=== PATIENT | female | born 1930 | race Hispanic/Latino ===

== ENCOUNTER 2018-06-13 13:01 | Inpatient (IN) | payer MEDICARE, OTHER ==
[2018-06-13 13:06] VITALS: BMI 26.9
--- NOTE | 2018-06-13 13:52 | ED PDOC ---
Arrival/HPI - History of Present Illness Narrative History of Present Illness (Text): 06/13/18 13:51 Pt is an 87 yo F with pmhx of HLD, hypothyroidism, DM, osteoporosis, and peripheral neuropathy who comes in with leg pain and swelling s/p fall 2/2 syncope 1 week ago. She states that about 1 week ago she was attempting to get on a bus, when she suddenly felt light headed and then "everything went black". The next thing she remembers is that she was on the ground and her walker was laying on its side. She states that she remembers all events leading up to the fall, and everything after but states that her memory of the actual fall is fuzzy. She denies ever having a syncopal episode before, and states that her o nly medication change recently was the addition of nitroglycerin as needed. She states that after the fall she felt a shooting pain down her R leg, which is currently rated as an 8/10 in intensity. She also states that since the fall she is unable to place weight on the R leg or use or walker. She admits to having broken her R and L hip in falls previous and has also broken her pelvis in previous falls. She now admits that both of her feet got swollen suddenly yesterday, but it is now improving. She denies any calf tenderness. She also denies confusion, weakness, chest pain, SOB, nausea, vomiting, abdominal pain, dysuria or hematuria. She denies any saddle anesthesia or fecal incontinence. PMHx: HLD, Hypothyroidism, DM, osteoporosis, peripheral neuropathy Pshx: R, L and pelvic surgeries All: Penicillin - Hives Social Hx: Quit smoking > 40 yrs ago, no etoh or illicit drug use Fam Hx: Denies 06/13/18 14:15 Time/Duration: 1 week Symptom Onset: Sudden Quality: Burning Severity Level: 8 Context: Standing <Feli Zafar - Last Filed: 06/13/18 18:46> <Abraham Domínguez - Last Filed: 06/14/18 15:46> - General Chief Complaint: Syncope Time Seen by Provider: 06/13/18 13:11 Past Medical History - Infectious Disease Hx of Infectious Diseases: None - Tetanus Immunization Tetanus Immunization: Unknown - Reproductive Menopause: Yes - Cardiac Hx Cardiac Disorders: Yes (CAD) - Pulmonary Hx Respiratory Disorders: No Hx Asthma: No - Neurological Hx Neurological Disorder: No - HEENT Hx HEENT Disorder: No - Renal Hx Renal Disorder: No - Endocrine/Metabolic Hx Endocrine Disorders: Yes Hx Diabetes Mellitus Type 2: Yes Hx Hypothyroidism: Yes - Hematological/Oncological Hx Blood Disorders: No Hx Blood Transfusions: No Hx Blood Transfusion Reaction: No - Integumentary Hx Dermatological Disorder: No - Musculoskeletal/Rheumatological Hx Musculoskeletal Disorders: Yes Hx Falls: Yes - Gastrointestinal Hx Gastrointestinal Disorders: Yes Hx Gastroesophageal Reflux: Yes - Genitourinary/Gynecological Hx Genitourinary Disorders: No - Psychiatric Hx Psychophysiologic Disorder: No Hx Substance Use: No - Surgical History Hx Orthopedic Surgery: Yes (R hip surgery) - Anesthesia Hx Anesthesia Reactions: No Hx Malignant Hyperthermia: No <Feli Zafar - Last Filed: 06/13/18 18:46> Family/Social History Family/Social History: Unknown Family HX Smoking Status: Former Smoker Hx Alcohol Use: No Hx Substance Use: No <Feli Zafar - Last Filed: 06/13/18 18:46> Allergies/Home Meds <Feli Zafar - Last Filed: 06/13/18 18:46> <Abraham Domínguez - Last Filed: 06/14/18 15:46> Allergies/Adverse Reactions: Allergies latex Allergy (Verified 06/13/18 13:06) RASH Penicillins Allergy (Verified 09/22/16 10:55) RASH Home Medications: Home Meds Medication Instructions Recorded Confirmed Gabapentin [Neurontin] 300 mg PO TID 04/01/16 06/13/18 Levothyroxine Sodium [Synthroid] 0.075 mg PO DAILY 04/01/16 06/13/18 Omeprazole [Prilosec] 40 mg PO DAILY 04/01/16 06/13/18 Tramadol HCl/Acetaminophen 1 tab PO BID PRN 04/01/16 06/13/18 [Tramadol-Acetaminophn 37.5-325] Atorvastatin [Lipitor] 40 mg PO DAILY 06/13/18 06/13/18 Clopidogrel [Plavix] 75 mg PO DAILY 06/13/18 06/13/18 Lidocaine 5% [Lidoderm] 1 patch TD DAILY 06/13/18 06/13/18 Nitroglycerin [Nitrostat] 0.4 mg SL DAILY 06/13/18 06/13/18 Review of Systems - Physician Review All systems were reviewed & negative as marked: Yes - Review of Systems Respiratory: absent: SOB Cardiovascular: absent: Chest Pain Gastrointestinal: absent: Abdominal Pain, Nausea, Vomiting Musculoskeletal: Other (R hip pain). absent: Back Pain Neurological: Other (denies any saddle anesthesia or fecal incontinence). absent: Focal Weakness, Speech Changes <Feli Zafar - Last Filed: 06/13/18 18:46> Physical Exam Vital Signs Reviewed: Yes Vital Signs Temp Pulse Resp BP Pulse Ox 06/13/18 13:29 97.6 F 71 18 97/54 L 97 Temperature: Afebrile Blood Pressure: Normal Pulse: Regular Respiratory Rate: Normal Appearance: Positive for: Non-Toxic, Uncomfortable Pain Distress: Mild Mental Status: Positive for: Alert and Oriented X 3 - Systems Exam Head: Present: Atraumatic, Normocephalic Pupils: Present: PERRL Extroacular Muscles: Present: EOMI Respiratory/Chest: Present: Clear to Auscultation, Good Air Exchange. No: Respiratory Distress, Accessory Muscle Use, Wheezes Cardiovascular: Present: Regular Rate and Rhythm, Normal S1, S2. No: Murmurs, Rub, Gallop Abdomen: Present: Normal Bowel Sounds. No: Tenderness, Distention, Peritoneal Signs Lower Extremity: Present: Edema, NORMAL PULSES. No: CALF TENDERNESS, Paris's Sign, Tenderness Neurological: Present: GCS=15, Speech Normal. No: Motor Func Grossly Intact (Pt is able to move both R and L feet at ankles in all directions with no limit in ROM, but she is unable to lift her R leg. ROM in R leg is also diminished due to pain.), Normal Sensory Function (She has b/l peripheral neuropathy in both legs past the ankles. ) Skin: Present: Dry, Normal Color. No: Rashes Psychiatric: Present: Alert, Oriented x 3, Normal Insight, Normal Concentration <Feli Zafar - Last Filed: 06/13/18 18:46> Vital Signs Temp Pulse Resp BP Pulse Ox 06/13/18 15:04 97.6 F 61 22 84/42 L 96 06/13/18 13:29 97.6 F 71 18 97/54 L 97 <Abraham Domínguez - Last Filed: 06/14/18 15:46> Medical Decision Making ED Course and Treatment: 06/13/18 14:34 Pt is a 87 yo F with pmhx detailed above who presented for R leg pain and b/l foot swelling s/p fall 2/2 syncope - EKG - Trops - CT pelvis and hips - Doppler US LE b/l - CBC - CMP 06/13/18 18:47 Progress Note: Pt was seen at bedside. Reassessed her pain, which she states is much better, but upon attempting to have pt ambulate, she was very weak and unable to walk. - Discussed case with Dr. Edward who accepts the pt and requests Dr. Wilson. Requests to be updated on pts CT results. 06/13/18 18:50 <Feli Zafar - Last Filed: 06/13/18 18:46> ED Course and Treatment: Progress Notes 06/13/18 18:39 Patient reevaluated and deemed unable to ambulate without assistance. Call placed to Dr. Yeh(covering for Dr. Peck). - Lab Interpretations Lab Results: 06/13/18 15:11 06/13/18 15:11 Lab Results 06/13/18 15:11: Sodium 137, Potassium 5.1 H, Chloride 102, Carbon Dioxide 27, Anion Gap 13, BUN 40 H, Creatinine 1.4 H, Est GFR ( Amer) 43, Est GFR (Non-Af Amer) 36, Random Glucose 98, Calcium 9.8, Phosphorus 4.0, Magnesium 1.9, Total Bilirubin 0.6, AST 45 H, ALT 22, Alkaline Phosphatase 81, Troponin I Pending, Total Protein 7.3, Albumin 3.9, Globulin 3.3, Albumin/Globulin Ratio 1.2 06/13/18 15:11: WBC 7.0, RBC 3.47 L, Hgb 10.9 L, Hct 32.8 L, MCV 94.5, MCH 31.4, MCHC 33.2, RDW 13.3, Plt Count 250, MPV 10.0, Gran % 71.0 H, Lymph % (Auto) 20.1 L, [place] % (Auto) 5.0, Eos % (Auto) 3.3, Baso % (Auto) 0.6, Gran # 4.98, Lymph # (Auto) 1.4, [place] # (Auto) 0.4, Eos # (Auto) 0.2, Baso # (Auto) 0.04 - RAD Interpretation Radiology Orders: 06/13/18 14:07 CT HIP W/O CONTRAST BILATERAL [CT] Stat PELVIS W/O PO OR IV CONTRAST [CT] Stat DUPLEX LOWER EXTRM VEIN BILAT [US] Stat - Medication Orders Current Medication Orders: Lidocaine (Lidoderm) 1 ea TD DAILY SILVANO Last Admin: 06/13/18 14:49 Dose: 1 ea MAR Transdermal Patch Site Document 06/13/18 14:49 DOUGHNUT MACHINE OPERATOR (Rec: 06/13/18 14:51 DOUGHNUT MACHINE OPERATOR [facility] [place]-[id number]) Transdermal Patch Site Transdermal Patch Site Right Lower Back Discontinued Medications Acetaminophen (Tylenol 325mg Tab) 975 mg PO STAT STA Stop: 06/13/18 14:12 Last Admin: 06/13/18 14:52 Dose: 975 mg MAR Pain/Vitals Document 06/13/18 14:52 DOUGHNUT MACHINE OPERATOR (Rec: 06/13/18 14:52 DOUGHNUT MACHINE OPERATOR [facility] [place]-[id number]) Pain Reassessment Is This A Pain ReAssessment? Yes Sleep Is patient sleeping during reassessment? No Presence of Pain Presence of Pain Yes Pain Scale Used Protocol: [facility] Scale Used Numeric Location Upper or Lower Lower Pain Location Body Site Back Intensity 8 Scale Used Numeric Ketorolac Tromethamine (Toradol) 30 mg IVP STAT STA Stop: 06/13/18 14:12 Last Admin: 06/13/18 14:52 Dose: 30 mg MAR Pain Assessment Document 06/13/18 14:52 DOUGHNUT MACHINE OPERATOR (Rec: 06/13/18 14:53 DOUGHNUT MACHINE OPERATOR [facility] [place]-[id number]) Pain Reassessment Is this a pain reassessment? Yes Sleep Is patient sleeping during reassessment? No Presence of Pain Presence of Pain Yes Pain Scale Used Protocol: PSCALES Pain Scale Used Numeric Location Upper or Lower Lower Pain Location Body Site Back IVP Administration Document 06/13/18 14:52 DOUGHNUT MACHINE OPERATOR (Rec: 06/13/18 14:53 DOUGHNUT MACHINE OPERATOR [facility] [place]-[id number]) Charges for Administration # of IVP Administrations 1 <Abraham Domínguez - Last Filed: 06/14/18 15:46> - PA / UNDERWEAR WELTER / Resident Statement /DO has reviewed & agrees with the documentation as recorded. MD/DO has examined the patient and agrees with the treatment plan. - Scribe Statement The provider has reviewed the documentation as recorded by the Scribe Patient Seen With Resident: In agreement with resident note. Patient was seen and evaluated with resident, came up with plan and treatment together. <Abraham Domínguez - Last Filed: 06/14/18 15:46> Disposition/Present on Arrival - Present on Arrival Any Indicators Present on Arrival: No History of DVT/PE: No History of Uncontrolled Diabetes: No Urinary Catheter: No History of Decub. Ulcer: No History Surgical Site Infection Following: None - Disposition Have Diagnosis and Disposition been Completed?: Yes Disposition Time: 18:52 <Feli Zafar - Last Filed: 06/13/18 18:46> <Abraham Domínguez - Last Filed: 06/14/18 15:46> - Disposition Diagnosis: Leg pain, anterior, Back pain, Sciatica, Pedal edema, Fall Disposition: HOSPITALIZED Patient Problems: Current Active Problems Problem Status Onset Fall Acute Leg pain, anterior Acute Back pain Acute Sciatica Acute Pedal edema Acute Condition: FAIR
[2018-06-13] MEDS ORDERED: Lidocaine 5% Patch TD SCH (14:15)
[2018-06-13 15:16] LABS: BASO # 0.04 K/mm3 (0.0-2.0); BASO % 0.6 % (0.0-3.0); EOS # 0.2 (0.0-0.7); EOS % 3.3 % (1.5-5.0); GRAN # 4.98 (1.4-6.5); HEMOGLOBIN 10.9 g/dL (12.0-16.0); LYMPH # 1.4 (1.2-3.4); LYMPH % 20.1 % (22.0-35.0); MEAN CELL VOLUME 94.5 fl (80.0-105.0); MEAN CORPUSCULAR HEMOGLOBIN 31.4 pg (25.0-35.0); MEAN CORPUSCULAR HGB CONC 33.2 g/dl (31.0-37.0); MONO # 0.4 (0.1-0.6); RBC 3.47 10^6/uL (3.5-6.1); RED CELL DISTRIBUTION WIDTH 13.3 % (11.5-14.5)
[2018-06-13 15:35] LABS: ALB/GLOB RATIO 1.2 (1.1-1.8); ALBUMIN 3.9 g/dL (3.0-4.8); CALCIUM 9.8 mg/dL (8.4-10.5)
[2018-06-13 15:44] LABS: TROPONIN I 0.03 ng/mL
[2018-06-13] MEDS ORDERED: Albuterol 0.083% Inhal Sol (2.5 mg/3 mL) UD INH STA (16:05)
[2018-06-13] MEDS ORDERED: Sodium Bicarbonate (8.4%) 50 Meq Syringe IVP ONE (16:05)
[2018-06-13] MEDS ORDERED: Oxycodone/Acetaminophen 5/325 mg Tab PO PRN (23:53)
--- NOTE | 2018-06-14 00:11 | CP.PCM.HP ---
History of Present Illness - History of Present Illness History of Present Illness: Pt. is a 87 year old female admitted with difficulty in walking. She had a syncope 1 week ago when she fell while trying to board a bus. She has history of CAD, h/o B/L hip surgery by Dr. Glass. She has history of prior falls also. CT pelvis ordered. Present on Admission - Present on Admission Any Indicators Present on Admission: No Review of Systems - Constitutional Constitutional: As Per HPI - EENT Eyes: absent: As Per HPI, Blind Spots, Blurred Vision, Change in Vision, Decreased Night Vision, Diplopia, Discharge, Dry Eye, Exophthalmos, Floaters, Ir ritation, Itchy Eyes, Loss of Peripheral Vision, Pain, Photophobia, Requires Corrective Lenses, Sees Flashes, Spots in Vision, Tunnel Vision, Other Visual Disturbances, Loss of Vision, Other - Breasts Breasts: absent: As Per HPI, Change in Shape, Mass, Pain, Nipple Discharge, Nipple Inversion, Skin Changes, Swelling, Other - Cardiovascular Cardiovascular: As Per HPI - Respiratory Respiratory: absent: As Per HPI, Cough, Dyspnea, Hemoptysis, Dyspnea on Exertion, Wheezing, Snoring, Stridor, Pain on Inspiration, Chest Congestion, Excessive Mucous Production, Change in Mucous Color, Pain with Coughing, Other - Gastrointestinal Gastrointestinal: absent: As Per HPI, Abdominal Pain, Belching, Bloating, Change in Bowel Habits, Change in Stool Character, Coffee Ground Emesis, Constipation, Cramping, Diarrhea, Dyspepsia, Dysphagia, Early Satiety, Excessive Flatus, Fecal Incontinence, Heartburn, Hematemesis, Hematochezia, Loose Stools, Melena, Nausea, Odynophagia, Temesmus, Vomiting, Other - Genitourinary Genitourinary: absent: As Per HPI, Change in Urinary Stream, Difficulty Urinating, Dysuria, Flank Pain, Hematuria, Pyuria, Nocturia, Urinary Incontinence, Urinary Frequency, Urinary Hesitance, Urinary Urgency, Voiding Freq/Small Amts, Freq UTI, Hx Renal/Bladder Calculi, Hx /Renal Surgery, Blad yon Distension, Other - Integumentary Integumentary: absent: As Per HPI, Acne, Alopecia, Bleeding Lesions, Change in Hair, Change in Nails, Change in Pigmentation, Changing Lesions, Dry Skin, Erythema, Furuncle, Hirsutism, Lesions, New Lesions, Non-Healing Lesions, Photosensitivity, Pruritus, Rash, Skin Pain, Skin Ulcer, Sores, Striae, Swelling, Unusual Bruising, Wounds, Jaundice, Other - Endocrine Endocrine: absent: As Per HPI, Change in Body Appearance, Change in Libido, Cold Intolorance, Deepening of Voice, Excessive Sweating, Fatigue, Flushing, Heat Intolorance, Increase in Ring/Shoe/Hat Size, Palpitations, Polydipsia, Polyphagia, Polyuria, Other - Hematologic/Lymphatic Hematologic: absent: As Per HPI, Easy Bleeding, Easy Bruising, Lymphadenopathy, Other Past Patient History - Infectious Disease Hx of Infectious Diseases: None - Tetanus Immunizations Tetanus Immunization: Unknown - Past Social History Smoking Status: Never Smoked - CARDIAC Hx Cardiac Disorders: Yes (CAD) - PULMONARY Hx Respiratory Disorders: No - NEUROLOGICAL Hx Neurological Disorder: No - HEENT Hx HEENT Problems: No - RENAL Hx Chronic Kidney Disease: No - ENDOCRINE/METABOLIC Hx Endocrine Disorders: Yes Hx Diabetes Mellitus Type 2: Yes Hx Hypothyroidism: Yes - HEMATOLOGICAL/ONCOLOGICAL Hx Blood Disorders: No - INTEGUMENTARY Hx Dermatological Problems: No - MUSCULOSKELETAL/RHEUMATOLOGICAL Hx Musculoskeletal Disorders: Yes Hx Falls: Yes - GASTROINTESTINAL Hx Gastrointestinal Disorders: Yes Hx Gastroesophageal Reflux: Yes - GENITOURINARY/GYNECOLOGICAL Hx Genitourinary Disorders: No - PSYCHIATRIC Hx Psychophysiologic Disorder: No - SURGICAL HISTORY Hx Surgeries: Yes Hx Orthopedic Surgery: Yes (R hip surgery) - ANESTHESIA Hx Anesthesia Reactions: No Hx Malignant Hyperthermia: No Meds Allergies/Adverse Reactions: Allergies Allergy/AdvReac Type Severity Reaction Status Date / Time latex Allergy RASH Verified 06/13/18 13:06 Penicillins Allergy RASH Verified 09/22/16 10:55 Physical Exam - Head Exam Head Exam: ATRAUMATIC, NORMAL INSPECTION, NORMOCEPHALIC - Eye Exam Eye Exam: Normal appearance - ENT Exam ENT Exam: Mucous Membranes Moist, Normal Exam - Neck Exam Neck exam: Positive for: Normal Inspection - Respiratory Exam Respiratory Exam: Clear to Auscultation Bilateral, NORMAL BREATHING PATTERN - Cardiovascular Exam Cardiovascular Exam: REGULAR RHYTHM, +S1, +S2 - GI/Abdominal Exam GI & Abdominal Exam: Normal Bowel Sounds - Extremities Exam Extremities exam: Positive for: normal inspection - Back Exam Back exam: NORMAL INSPECTION - Neurological Exam Neurological exam: Alert, Normal Gait, Oriented x3 - Skin Skin Exam: Normal Color, Warm Results - Vital Signs Recent Vital Signs: Last Vital Signs Temp 98.2 F 06/13/18 21:05 Pulse 60 06/13/18 21:05 Resp 20 06/13/18 21:05 BP 115/69 06/13/18 21:05 Pulse Ox 98 06/13/18 20:24 - Labs Result Diagrams: 06/13/18 15:11 06/13/18 15:11 Labs: Laboratory Results - last 24 hr 06/13/18 06/13/18 15:11 15:11 WBC 7.0 RBC 3.47 L Hgb 10.9 L Hct 32.8 L MCV 94.5 MCH 31.4 MCHC 33.2 RDW 13.3 Plt Count 250 MPV 10.0 Gran % 71.0 H Lymph % (Auto) 20.1 L [place] % (Auto) 5.0 Eos % (Auto) 3.3 Baso % (Auto) 0.6 Gran # 4.98 Lymph # (Auto) 1.4 [place] # (Auto) 0.4 Eos # (Auto) 0.2 Baso # (Auto) 0.04 Sodium 137 Potassium 5.1 H Chloride 102 Carbon Dioxide 27 Anion Gap 13 BUN 40 H Creatinine 1.4 H Est GFR ( Amer) 43 Est GFR (Non-Af Amer) 36 Random Glucose 98 Calcium 9.8 Phosphorus 4.0 Magnesium 1.9 Total Bilirubin 0.6 AST 45 H ALT 22 Alkaline Phosphatase 81 Troponin I 0.03 Total Protein 7.3 Albumin 3.9 Globulin 3.3 Albumin/Globulin Ratio 1.2 Assessment & Plan - Assessment and Plan (Free Text) Assessment: 1. S/P fall : CT pelvis done. ortho consult Dr. Glass. she had hip surgery by Dr. Glass before. 2. CAD : trops to be sent. EKG unremarkable. Cardiology consult Dr. Rios requested. Echo will be ordered. 3. pain : percocet Q 6 hr prn. 4. Blood counts showed mild anemia. work up with am labs. 5. Lovenox 30 mg SQ for DVT prophylaxis. PT bedside .
[2018-06-14] MEDS: Levothyroxine 75 MCG TAB PO SCH (05:52)
[2018-06-14] MEDS: Pantoprazole 40 mg EC Tab PO SCH (05:52)
--- NOTE | 2018-06-14 08:57 | CARD ---
APPROVED REPORT Date of service: 06/13/2018 EKG Measurement Heart [id number] <Conclusion> Sinus rhythm with 1st degree AV block 1 PVC Left axis deviation PRWP Possible anterior CT, old No change
[2018-06-14] MEDS ORDERED: Sod Polystyrene Sulf 15 gm/60 ml Susp PO ONE (09:52)
[2018-06-14] MEDS: Lidocaine 5% Patch TD SCH (10:11)
[2018-06-14] MEDS: Enoxaparin 30 mg Syringe SC SCH (10:12)
--- NOTE | 2018-06-14 11:36 | CT ---
Date of service: 06/13/2018 PROCEDURE: CT Pelvis without contrast HISTORY: Fall COMPARISON: None available. TECHNIQUE: Contiguous axial images of the pelvis . No intravenous or oral contrast given. Coronal and sagittal reformats generated. Radiation dose: Total exam DLP = 553.68 mGy-cm. This CT exam was performed using one or more of the following dose reduction techniques: Automated exposure control, adjustment of the mA and/or kV according to patient size, and/or use of iterative reconstruction technique. FINDINGS: BLADDER: Unremarkable. No mass. REPRODUCTIVE ORGANS: Unremarkable. VISUALIZED BOWEL: Unremarkable. PERITONEUM: Unremarkable, as visualized. No free fluid. No free air. LYMPH NODES: Unremarkable. No enlarged lymph nodes. BONES: Bilateral SEAN. Severe degenerative changes identified. Evidence of old pelvic ring fractures. Possible right ischial, pelvic ring fracture VASCULATURE: Unremarkable. OTHER FINDINGS: None. IMPRESSION: Acute nondisplaced right pelvic ring fracture. Fracture lines are best seen on coronal series 604, image 70 and 84 and axial images series 3, image 90-94 Evidence of old healed pelvic ring fractures on the right. Communication of results: I conveyed these findings to the nurse involved in the care and management this patient at 11:34.
--- NOTE | 2018-06-14 15:59 | CON ---
DATE: 06/14/2018 NEUROLOGY CONSULT CHIEF COMPLAINT: Status post syncope a week ago. HISTORY OF PRESENT ILLNESS: An 87-year-old woman with history of coronary artery disease, history of bilateral hip surgery, type 2 diabetes mellitus, hypertension, and hypothyroidism, who apparently was a week ago when she blacked out for a few seconds, had history of fall. She had a small right pelvic ring fracture which Orthopedics on-board. She has low systolic and diastolic blood pressures, and she was admitted with 84/42 as well as 97/84 mmHg. Currently, her blood pressure is more stabilized. She is following commands. No focal weakness in the extremities. She has deconditioned and has evidence of diabetic peripheral neuropathy on examination. PAST MEDICAL HISTORY: As above. ALLERGIES: ALLERGIC TO LATEX AND PENICILLIN. REVIEW OF SYSTEMS: A 12-point review of systems negative except as per the HPI. SOCIAL HISTORY: No illicit drug use, smoking, or EtOH abuse at this time. MEDICATION: Reviewed by nurse per reconciliation sheet. LABORATORY DATA: No new labs done today. PHYSICAL EXAMINATION VITAL SIGNS: Temperature 97.8, pulse rate 66, blood pressure 151/70, respiratory rate 20, oxygen saturation 98% by room air. GENERAL: Patient is sitting up in bed, in no acute distress. HEENT: Atraumatic and normocephalic. PERRLA. Extraocular muscles are intact. NECK: Supple, no JVD. No adenopathy noted. LUNGS: Clear to auscultation. No adventitious sounds. HEART: S1, S2. Normal rate and rhythm. No murmurs, rubs, or gallops. ABDOMEN: Soft, nontender, nondistended. Bowel sounds presents. EXTREMITIES: No clubbing, no cyanosis. Peripheral pulses 2+ felt bilaterally. NEUROLOGIC: Patient is alert and oriented to person, place, month, and year. Speech is fluent without any errors. Cranial nerves II through XII intact. Motor exam: Moves all extremities equally. Toes are downgoing bilaterally. Sensory exam: Decreased light touch and pinprick up to the calves bilaterally. Decreased vibration of the toes. DTRs are 2+ throughout, 1 at both knees and absent at the ankles. Coordination: [id number] intact. No dysmetria noted. Gait is deferred for now. IMPRESSION: Her syncope is most likely vasovagal from transient cerebral hypoperfusion to the brain given that she had initially low systolic and diastolic blood pressure which could be the cause. She was deconditioned which sustained in fall diabetic peripheral neuropathy. She has sustained a right pelvic ring fracture which Orthopedics on-board. Recommend PT, OT, and I advise increased fluid intake throughout the day. Thank you for this consultation. Yossi Tran MD
[2018-06-14] MEDS: Oxycodone/Acetaminophen 5/325 mg Tab PO PRN (16:35)
--- NOTE | 2018-06-14 17:22 | CON ---
DATE: 06/14/2018 ORTHOPEDIC CONSULT LOCATION: In room 376, bed 2. HISTORY OF PRESENT ILLNESS: The patient is an 87-year-old female who slipped and fell prior to coming into the hospital. She complained of syncope and right pelvic pain. X-rays of the pelvis did show stable minimally displaced fracture of the pubic ramus on the right, but no hip fractures. It seems she did have two hip fractures previously, both fixed with pins, a nail on the right and a plate on the left. She can walk, so I am going to get her ambulating again as this fracture of the ischium will tolerate weightbearing, so we will get her to go physical therapy, get her up out of bed, minimize chance of phlebitis and she should not go home and live alone, but she should first go to subacute rehab and then go home. Make sure she is stable as possible, so she does not fall again. FINAL DIAGNOSIS: Stable right pelvic fracture, no surgery needed, just heel for 4 to 6 weeks and strengthening exercises and physical therapy which will be ordered. William Kirby DO
--- NOTE | 2018-06-14 17:48 | PN ---
DATE: 06/14/2018 SUBJECTIVE: The patient is 87 years old, who states that she passed out almost a week ago. Since then, she is having right hip pain. So when her daughter learned, she got an ambulance and she was brought to emergency room for further evaluation. PHYSICAL EXAMINATION: GENERAL: On examination today, she is awake and alert, able to communicate. Complained of right hip pain. VITAL SIGNS: She is afebrile, pulse 66, respirations 20, blood pressure 115/72. LUNGS: Bilateral good airflow. No rhonchi or crackle. HEART: S1 and S2 audible. ABDOMEN: Soft. Nontender. No rebound. No guarding. NEUROLOGICAL: She is awake, alert, oriented, communicative. LABORATORY EXAM: There is no new lab available today. ASSESSMENT: 1. Status post syncope. 2. Right hip pain and had CT scan of the pelvis done that shows nondisplaced right pelvic ring fracture. 3. History of hypertension. 4. Peptic ulcer disease. 5. History of hypothyroidism. 6. Hyperlipidemia. The patient does have a history of previous hip surgeries. PLAN: Dr. Kirby to evaluate the patient. I will order for carotid Doppler. She has mild renal insufficiency. She is on IV fluid. We will follow up her electrolyte and CBC in the a.m. Lora Hankins MD
[2018-06-14] MEDS: Dextrose 5%/0.45% NS 1,000 ML IV SCH (18:00)
[2018-06-15] MEDS: Oxycodone/Acetaminophen 5/325 mg Tab PO PRN ×2 (04:03→20:41)
[2018-06-15] MEDS: Pantoprazole 40 mg EC Tab PO SCH (05:59)
[2018-06-15] MEDS: Levothyroxine 75 MCG TAB PO SCH (06:00)
[2018-06-15 07:19] LABS: BASO # 0.04 K/mm3 (0.0-2.0); BASO % 0.8 % (0.0-3.0); EOS # 0.3 (0.0-0.7); EOS % 4.9 % (1.5-5.0); GRAN # 3.2 (1.4-6.5); GRAN % 60.6 % (50.0-68.0); HEMOGLOBIN 9.9 g/dL (12.0-16.0); LYMPH # 1.4 (1.2-3.4); LYMPH % 27.1 % (22.0-35.0); MEAN CELL VOLUME 94.8 fl (80.0-105.0); MEAN CORPUSCULAR HEMOGLOBIN 30.4 pg (25.0-35.0); MEAN PLATELET VOLUME 9.9 fl (7.0-11.0); MONO # 0.4 (0.1-0.6); MONO % 6.6 % (1.0-6.0); RBC 3.26 10^6/uL (3.5-6.1); RED CELL DISTRIBUTION WIDTH 13.1 % (11.5-14.5); WHITE BLOOD COUNT 5.3 10^3/ul (4.5-11.0)
[2018-06-15 07:33] LABS: ALB/GLOB RATIO 1.1 (1.1-1.8); ALBUMIN 3.2 g/dL (3.0-4.8)
[2018-06-15] MEDS: Enoxaparin 30 mg Syringe SC SCH (09:11)
[2018-06-15] MEDS: Lidocaine 5% Patch TD SCH (09:11)
--- NOTE | 2018-06-15 10:15 | RAD ---
PROCEDURE: Radiographs of the pelvis and bilateral hips HISTORY: rt hip pain COMPARISON: June 14, 2018. CT pelvis FINDINGS: BONES: Acute pelvic ring fracture on the right. Evidence of old healed pelvic ring fracture on the left. Orthopedic hardware incompletely visualized but appearing unremarkable. JOINTS: Symmetrical moderate degenerative changes both hips. SOFT TISSUES: Normal. OTHER FINDINGS: None. IMPRESSION: Confirmation of right pelvic ring fractures which appear to be nondisplaced.
--- NOTE | 2018-06-15 12:11 | PN ---
DATE: 06/15/2018 LOCATION: In room 376, bed 2. The patient is feeling much better. Her pelvic fracture pain is less. She will got up out of bed and walked to the bathroom. I feel as though she is a good candidate for TCU as this fracture happened over a week ago at home before she came to the hospital. If she could just get another week or so of therapy before she goes home, where she lives alone basically, and this way, she does not have to go through subacute rehab. I feel as though she is safe in order to go home if she has a week of therapy at TCU as this fracture should heal very well in 2 or 3 more weeks. William Kirby DO
[2018-06-15] MEDS: Dextrose 5%/0.45% NS 1,000 ML IV SCH (13:52)
--- NOTE | 2018-06-15 16:20 | US ---
HISTORY: Leg pain and swelling. Evaluate for DVT PHYSICIAN(S): Dony Brasher MD. TECHNIQUE: Duplex sonography and color-flow Doppler with graded compression were used to evaluate the deep venous systems of both lower extremities. FINDINGS: The visualized deep venous systems of both lower extremities are sonographically normal and compressible. Normal wave forms and augmentation are seen. There is no sonographic evidence for deep venous thrombosis in the visualized segments of both lower extremities. There is a large 2.5 x 7.2 cm fluid collection in the left popliteal fossa, consistent with a Kirby cyst IMPRESSION: No sonographic evidence for deep venous thrombosis in the visualized segments of both lower extremities.
--- NOTE | 2018-06-15 20:25 | PN ---
DATE: 06/15/2018 SUBJECTIVE: The patient is 87 years old, seen and examined, sitting in chair, complained of right hip pain. Denies any nausea or vomiting. Eating and tolerating. Has difficulty walking. PHYSICAL EXAMINATION: VITAL SIGNS: She is afebrile, pulse 61, respirations 20, blood pressure 116/63. LUNGS: Bilateral good airflow. No rhonchi or crackle. HEART: S1 and S2 audible. ABDOMEN: Soft. Nontender. No rebound. No guarding. NEUROLOGICAL: The patient is awake and alert, communicative and still complained of right hip pain. LABORATORY DATA: WBC 5.3, hemoglobin 9.9, hematocrit 30.9, platelet 215. Chemistry: Sodium 137, potassium 4.8, chloride 102, CO2 of 29, BUN 43, creatinine 1.5, blood sugar of 110. She had x-ray of the hip and the pelvis done that shows right pelvic ring fracture which appeared to be nondisplaced. ASSESSMENT: 1. Status post fall. 2. Pelvic ring fracture. 3. Deconditioning and difficulty walking. 4. Mild renal insufficiency. 5. Hyperlipidemia. 6. Hypertension. 7. Hypothyroidism. PLAN: Currently, we will continue her on IV fluids. She will be admitted. We will request for TCU evaluation. If accept, she can be transferred to TCU. Lora Hankins MD
[2018-06-16] MEDS: Pantoprazole 40 mg EC Tab PO SCH (05:56)
[2018-06-16] MEDS: Levothyroxine 75 MCG TAB PO SCH (05:56)
[2018-06-16] MEDS: Dextrose 5%/0.45% NS 1,000 ML IV SCH (05:59)
[2018-06-16] MEDS: Lidocaine 5% Patch TD SCH (09:09)
[2018-06-16] MEDS: Enoxaparin 30 mg Syringe SC SCH (09:09)
--- NOTE | 2018-06-16 11:25 | US ---
PROCEDURE: Bilateral carotid artery duplex ultrasound HISTORY: Carotid stenosis syncope PHYSICIAN(S): Dony Brasher MD. TECHNIQUE: Duplex sonography and color-flow Doppler were used to evaluate the carotid bifurcations and limited segments of the vertebral arteries bilaterally. FINDINGS: The exam is somewhat limited by tortuous vessels There is mild smooth heterogeneous plaque noted at the carotid bifurcations bilaterally. The peak systolic velocity in the proximal right internal carotid artery is 74 cm/sec. This corresponds to a 20 to 39% proximal right ICA stenosis. Normal systolic velocities are noted in the proximal right external carotid artery. There is antegrade flow in the right vertebral artery. The peak systolic velocity in the proximal left internal carotid artery is 71 cm/sec. This corresponds to a 20 to 39% proximal left ICA stenosis. Normal systolic velocities are noted in the proximal left external carotid artery. There is antegrade flow in the left vertebral artery. IMPRESSION: 1. Bilateral 20-39% proximal ICA stenoses. 2. Antegrade flow in both vertebral arteries.
--- NOTE | 2018-06-16 18:34 | CARD ---
APPROVED REPORT Date of service: 06/16/2018 EXAM: Two-dimensional and M-mode echocardiogram with Doppler and color Doppler. INDICATION PRE-OP, SYNCOPE 2D DIMENSIONS IVSd1.0 (0.7-1.1cm)LVDd4.3 (3.9-5.9cm) PWd1.2 (0.7-1.1cm)LVDs3.1 (2.5-4.0cm) FS (%) 26.7 %LVEF (%)52.5 (>50%) M-Mode DIMENSIONS Left Atrium (MM)4.30 (2.5-4.0cm)Aortic Root2.80 (2.2-3.7cm) Aortic Cusp Exc.2.10 (1.5-2.0cm) Aortic Valve AoV Peak Gzixslxj405.0cm/Grant Peak GR.5mmHg Mitral Valve MV E Zrxozvjt11.7cm/sMV A Drnohjba04.0cm/sE/A ratio0.8 TDI Lateral E' Peak V8.29cm/sMedial E' Peak V5.17cm/sE/Lateral E'7.6 E/Medial E'12.1 Tricuspid Valve TR Peak Yhpwysut881gh/sRAP [id number] Peak Gr.38mmHg [id number] LEFT VENTRICLE The left ventricle is normal size. There is borderline to mild concentric left ventricular hypertrophy. Left ventricle systolic function is low normal.EF-50% There is mild hypokinesis in the basal inferolateral wall. Transmitral Doppler flow pattern is Grade III-reversible restrictive diastolic dysfunction. No left ventricle thrombus noted on this study. There is no ventricular septal defect visualized. There is no left ventricular aneurysm. There is no mass noted in the left ventricle. RIGHT VENTRICLE The right ventricle is normal size. There is normal right ventricular wall thickness. The right ventricular systolic function is normal. ATRIA The left atrium is mildly dilated. The right atrium is mildly dilated. The interatrial septum is intact with no evidence for an atrial septal defect. AORTIC VALVE The aortic valve is thickened but opens well. No aortic regurgitation is present. There is no aortic valvular stenosis. There is no aortic valvular vegetation. MITRAL VALVE The mitral valve is thickened but opens well. Mitral regurgitation is mild. There is no mitral valve stenosis. There is no evidence of mitral valve prolapse. TRICUSPID VALVE The tricuspid valve leaflets are thickened , but open well. There is mild tricuspid regurgitation.RVSP-48 mmof Hg. There is no tricuspid valve stenosis. There is no tricuspid valve prolapse or vegetation. PULMONIC VALVE The pulmonic valve is not well visualized, probably normal. GREAT VESSELS The aortic root is normal in size. The ascending aorta is normal in size. The pulmonary artery is normal. The IVC is normal in size and collapses >50% with inspiration. PERICARDIAL EFFUSION There is no pleural effusion. There is no pericardial effusion. <Conclusion> The left ventricle is normal size. There is borderline to mild concentric left ventricular hypertrophy. Left ventricle systolic function is low normal.EF-45-50% There is mild hypokinesis in the basal inferolateral wall. There is mild tricuspid regurgitation.RVSP-48 mmof Hg. The IVC is normal in size and collapses >50% with inspiration. There is no pericardial effusion. B/l atrial enlargement.
--- NOTE | 2018-06-16 23:50 | PN ---
DATE: 06/16/2018 SUBJECTIVE: She is comfortable in bed, in no acute distress. Denies any hip pain. Able to ambulate to the restroom. No nausea, no vomiting. Evaluated by Dr. Kirby. Fractured pelvis on CT scan. Physical therapy is recommended. REVIEW OF SYSTEMS: As per HPI. Rest of 12-point review of systems reviewed negative. PHYSICAL EXAMINATION: GENERAL: Comfortable in bed, in no acute distress. VITAL SIGNS: Afebrile, temperature 97.8, heart rate 80 per minute, blood pressure 120/70. HEENT: Pallor positive. NECK: No lymphadenopathy. CHEST: Air entry present and equal bilateral. No added sound. CARDIOVASCULAR: S1, S2 normal. No murmur. No gallop. ABDOMEN: Soft, nontender. No hepatosplenomegaly. EXTREMITIES: No edema. LABORATORY DATA: White count 5.3, hemoglobin 9.9, hematocrit 30.9, BUN 43, creatinine 1.5. CAT scan as per HPI. MEDICATIONS: Reviewed. ASSESSMENT: 1. Status post fall. 2. Right-sided pelvic fracture. 3. Deconditioning, difficulty in walking. 4. Anemia. 5. Mild renal insufficiency. 6. Hypothyroidism. 7. Hypertension. PLAN: We will continue current medication. Pain control with current medications. TCU evaluation for physical therapy. We will continue Plavix, aspirin. Currently on Lovenox for DVT prophylaxis, we will continue that. Gabapentin 300 mg p.o. t.i.d., Synthroid 75 mcg daily, Lidoderm patch local application, metoprolol to continue, Percocet p.r.n. for pain, Protonix 40 mg daily. Labs ordered for the morning. Mild renal insufficiency, we will continue to monitor renal functions. Anemia related to iron deficiency, may be chronic kidney disease. We will do the workup for anemia, iron studies, B12, folate level, SPEP, immunofixation. Haley Yeh MD
--- NOTE | 2018-06-17 01:42 | CON ---
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 The patient had a stress test 3-4 weeks ago that shows ejection fraction of 50%. Multiple area of ischemia noted. Also, echo dated 03/2018 shows ejection fraction of 45-50%. In view of above, cardiac catheterization was set up, but the patient later on did not go there and still waiting to have a cath done. So, discussed with if the patient needs catheterization upon discharge, the patient can be arranged at [place] or if the patient is willing we will arrange once the patient stabilizes medically. Further recommendations depending on the hospital course. We will follow with you. Thank you, Dr. Hankins for providing the opportunity in taking care of the patient, Lluvia Gutierrez. Monica Arenas MD
--- NOTE | 2018-06-17 02:02 | CON ---
DATE: 06/16/2018 REASON FOR CONSULTATION AND FOLLOWUP: Preoperative evaluation and risk stratification of possible OR, status post fall, status post ring hip fracture of the right acute pelvic ring fracture. BRIEF CLINICAL HISTORY: This is an 87-year-old female, who had said that she went out, trying to catch the bus, suddenly she fell down. Denies any loss of consciousness. Has history of hypothyroidism, history of arthritis, history of hypertension, hyperlipidemia. According to her, recent workup done by private candy roller named Dr. Catrachita Rosales, telephone # [phone] and a stress test was done and was told suspicious of blockage. Echo was normal and is scheduled for cardiac catheterization, who was admitted recently with syncopal episode and preop cardiology consult was called for evaluation. Patient denies any chest pain, shortness of breath, or any palpitation. PAST MEDICAL HISTORY: Significant for hypothyroidism. PAST SURGICAL HISTORY: Significant for left hip fracture, status post OR internal fixation a year ago. SOCIAL HISTORY: Denies any smoking. Denies any history of alcohol abuse. MEDICATIONS: Patient was taking at home, oxycodone, tramadol, omeprazole, nitroglycerine, levothyroxine, gabapentin, lidocaine, aspirin, and Plavix. REVIEW OF SYSTEMS: As per HPI. PHYSICAL EXAMINATION: VITAL SIGNS: Temperature afebrile. Heart rate 67, blood pressure 120/66. HEENT: PERRLA. Extraocular muscles intact. NECK: Supple. No carotid bruits or thyromegaly. CHEST: Clear to auscultation. HEART: S1, S2 regular. ABDOMEN: Soft. EXTREMITIES: Clubbing, cyanosis negative. LABORATORY DATA: EKG shows normal sinus. No acute ST-T changes noted. IMPRESSION: An 87-year-old female with past medical history significant for syncope a week ago, sustained fracture of the right hip ring, being decided to be treated medically, history of hypothyroidism, history of borderline hypertension, was advised by candy roller PMD, needs a cardiac catheterization, asymptomatic. RECOMMENDATIONS: Get echo to assess LV function. Okay to transfer to TCU. We will get in touch with PMD candy roller Dr. Catrachita Rosales to get more information. So far patient is asymptomatic, EKG is pretty benign. We will follow with you. We will start low dose of beta-yola and echo, lipid profile, TSH, hemoglobin A1c. Further recommendations depending on the hospital course as well as information obtained from Dr. Catrachita Rosales, her PMD candy roller. Thank you Dr. Hankins for providing us the opportunity in taking care of the patient, Lluvia Gutierrez. Monica Arenas MD
[2018-06-17] MEDS: Pantoprazole 40 mg EC Tab PO SCH (05:34)
[2018-06-17] MEDS: Levothyroxine 75 MCG TAB PO SCH (05:34)
[2018-06-17 07:35] LABS: IRON 49 ug/dL (45-180)
[2018-06-17 07:36] LABS: ALB/GLOB RATIO 1.1 (1.1-1.8); ALBUMIN 3.2 g/dL (3.0-4.8); CALCIUM 9.6 mg/dL (8.4-10.5)
[2018-06-17 07:46] LABS: % IRON SATURATION 18 % (20-55); TOTAL IRON BINDING CAPACITY 266 ug/dL (265-497)
--- NOTE | 2018-06-17 08:00 | CP.PCM.PN ---
Subjective - Date & Time of Evaluation Date of Evaluation: 06/17/18 Time of Evaluation: 06:30 - Subjective Subjective: Awake,alert, no distress, hip pain especially walking Reason for consultation and follow up: Cardiac evaluation and risk stratification for possible hip surgery post right hip ring fracture, status post fall. history of hypothyroidism, arhtritis, hypertension, hyperlipidemia. Seen and examined by me and Dr. Arenas Objective - Vital Signs/Intake and Output Vital Signs (last 24 hours): Temp Pulse Resp BP Pulse Ox 98.4 F 77 18 124/61 99 06/16/18 17:07 06/17/18 06:00 06/16/18 17:07 06/16/18 17:07 06/16/18 17:07 - Medications Medications: Current Medications Atorvastatin Calcium (Lipitor) 40 mg PO DAILY [facility] Last Admin: 06/16/18 09:09 Dose: 40 mg Clopidogrel Bisulfate (Plavix) 75 mg PO DAILY [facility] Last Admin: 06/16/18 09:10 Dose: 75 mg Enoxaparin Sodium (Lovenox) 30 mg SC DAILY [facility]; Protocol Last Admin: 06/16/18 09:09 Dose: 30 mg Gabapentin (Neurontin) 300 mg PO TID [facility]; Protocol Last Admin: 06/16/18 17:14 Dose: 300 mg Dextrose/Sodium Chloride (Dextrose 5%/0.45% Ns 1000 Ml) 1,000 mls @ 60 mls/hr IV .[id number] [facility] Last Admin: 06/16/18 05:59 Dose: 60 mls/hr Levothyroxine Sodium (Synthroid) 75 mcg PO 0600 [facility] Last Admin: 06/17/18 05:34 Dose: 75 mcg Lidocaine (Lidoderm) 1 ea TD DAILY [facility] Last Admin: 06/16/18 09:09 Dose: 1 ea Metoprolol Tartrate (Lopressor) 12.5 mg PO BID [facility] Last Admin: 06/16/18 17:13 Dose: 12.5 mg Nitroglycerin (Nitrostat Sl Tab) 0.4 mg SL Q5M PRN PRN Reason: chest pain Pantoprazole Sodium (Protonix Ec Tab) 40 mg PO 0600 [facility] Last Admin: 06/17/18 05:34 Dose: 40 mg - Labs Labs: 06/15/18 06:30 06/17/18 06:30 - Constitutional Appears: No Acute Distress - Head Exam Head Exam: NORMAL INSPECTION, NORMOCEPHALIC - Eye Exam Eye Exam: Normal appearance - ENT Exam ENT Exam: Mucous Membranes Moist, Normal Exam - Respiratory Exam Respiratory Exam: Clear to Ausculation Bilateral, NORMAL BREATHING PATTERN - Cardiovascular Exam Cardiovascular Exam: REGULAR RHYTHM, +S1, +S2 - GI/Abdominal Exam GI & Abdominal Exam: Soft, Normal Bowel Sounds Additional comments: telemetry NSR - Extremities Exam Extremities Exam: Normal Capillary Refill Additional comments: right hip pain but able to walk with assistance to bathroom - Neurological Exam Neurological Exam: Alert, Awake, Oriented x3 - Psychiatric Exam Psychiatric exam: Normal Affect, Normal Mood - Skin Skin Exam: Dry, Normal Color, Warm Assessment and Plan - Assessment and Plan (Free Text) Assessment: Reason for consultation and follow up: Cardiac evaluation and risk stratification for possible hip surgery post right hip ring fracture, status post fall. history of hypothyroidism, arhtritis, hypertension, hyperlipidemia. Follows up with Dr. Catrachita romero. As per classroom monitor. recent stress test suspicious of coronary artery disease and was scheduled for cardiac catheterization. Dr. Arenas will discuss with patient and cardilogoist if wanted cardiac cath in this hospitalization.Denies chest pain. no evidence of ischemia or heart failure. Echo done. Plan: Echo done yesterday- LVEF 45-50%,LV size normal Mild hypokinesis basal inferior wall Mild TR RVSP 48 mmHg, Bilateral atrial enlargement Denies chest pain or shortness of breath Heart rate and blood pressure controlled Cardiac status stable No surgical procedure for right hip ring fracture as per surgery Continue current treatment Continue current medications Physical therapy Chart reviewed Will follow up Plan and treatment discussed with Dr. Arenas
[2018-06-17 08:40] VITALS: TEMP 98.2
[2018-06-17] MEDS: Enoxaparin 30 mg Syringe SC SCH (10:25)
[2018-06-17] MEDS: Lidocaine 5% Patch TD SCH (10:26)
--- NOTE | 2018-06-17 15:26 | PN ---
DATE: 06/17/[address] Catrachita Rosales her [employer]. INFORMATION OBTAINED: Patient has multiple areas of reversible ischemia, ejection fraction of 50%. Echo at that time 04/02/2018, shows ejection fraction of 45% to 50%. Repeat echo done yesterday that shows ejection fraction of 45% to 50%, mild hypokinesis basal inferior wall. Wall motion CAD. Discussed in length with the patient. Patient agreed to have the done. Does not want to go to the [facility]. PLAN: We will continue a rehab probably since the patient is asymptomatic. Continue Plavix, continue aspirin. We will add on aspirin. Continue beta-yola as blood pressure is tolerated. Continue atorvastatin and cardiac catheterization in a week to 10 days after the rehab. If the blood pressure and heart rate remain stable, we will increase metoprolol to 25 p.o. b.i.d. Since the LDL is less than 50, we will decrease to 20 mg of atorvastatin. We will follow with you and schedule in a week to 10 days cardiac catheterization and possible angioplasty at [facility]. This note is in addition to the dictated by our nurse practitioner Yajaira Gonzales. Thank you, Dr. Yeh for providing us the opportunity in taking care of the patient, Lluvia Gutierrez. Monica Arenas MD
[2018-06-17 16:10] VITALS: BP 108/62; RESP 18; O2SAT 99
[2018-06-17 17:42] VITALS: PULSE 68
== END 2018-06-17 18:24 | DRG 536 ==
LOC: ED 13:01 → ERH 18:55 → 3RSO 20:52 → OBSVTOIN 06-15 10:53
PROVIDERS: ADMIT Internal Medicine Medical Oncology; ATTEND Internal Medicine Medical Oncology
DX: S32.810A Multiple fractures of pelvis with stable disruption of pelvic ring, initial encounter for closed fracture (principal); S32.501A Unspecified fracture of right pubis, initial encounter for closed fracture; E11.42 Type 2 diabetes mellitus with diabetic polyneuropathy; D64.9 Anemia, unspecified; E03.9 Hypothyroidism, unspecified; E78.5 Hyperlipidemia, unspecified; I10 Essential (primary) hypertension; I25.10 Atherosclerotic heart disease of native coronary artery without angina pectoris; K21.9 Gastro-esophageal reflux disease without esophagitis; M81.0 Age-related osteoporosis without current pathological fracture; K27.9 Peptic ulcer, site unspecified, unspecified as acute or chronic, without hemorrhage or perforation; N28.9 Disorder of kidney and ureter, unspecified; R55 Syncope and collapse; W19.XXXA Unspecified fall, initial encounter; V78.4XXA Person boarding or alighting from bus injured in noncollision transport accident, initial encounter; Y92.414 Local residential or business street as the place of occurrence of the external cause; Z79.02 Long term (current) use of antithrombotics/antiplatelets; Z88.0 Allergy status to penicillin; Z87.891 Personal history of nicotine dependence

== ENCOUNTER 2018-06-17 18:24 | Inpatient (IN) | payer MEDICARE, OTHER ==
[2018-06-18] MEDS: Pantoprazole 40 mg EC Tab PO SCH (05:36)
[2018-06-18] MEDS: Enoxaparin 30 mg Syringe SC SCH ×2 (09:03→21:05)
[2018-06-18] MEDS: Lidocaine 5% Patch TD SCH (09:03)
--- NOTE | 2018-06-18 11:22 | CON ---
DATE: 06/18/2018 HISTORY OF PRESENT ILLNESS: The patient is known to me for having a right pubic rami fracture that is stable and compatible with no surgery and she just needs to do physical therapy. She was first seen when she was in room 376, bed 2 on 06/15/2018 when she was admitted with a pelvic fracture on the right side, but now she is getting better. She looks more comfortable. She is in the TCU floor for continued physical therapy. I told her it is going to take at least 6 weeks to become what we call healed enough to be considered normal enough to , but in the meantime while she is here, she will get much better with physical therapy in the form of the healing. As long as she does not fall, she will be fine. FINAL DIAGNOSIS: Healing right pubic ramus fracture compatible with good outcome with conservative therapy. William Kirby DO
--- NOTE | 2018-06-18 19:57 | CON ---
DATE: 06/18/2018 REASON FOR DICTATION: Continue the care in Transitional Care Unit, possible CAD. BRIEF CLINICAL HISTORY: This is 87-year-old female who was initially admitted to the medical floor on 06/15/2018 after a fall and possible pelvic ring fracture for OR, but later on it was decided to be treated medically. Now, the patient is in TCU for rehab. The patient has extensive history of coronary artery disease, history of recent deterioration of LV function. The patient underwent a stress test by Dr. Catrachita Rosales, software project manager, telephone number [phone] and shows multiple areas of reversible ischemia, ejection fraction 45% to 50% and the patient was scheduled for cardiac catheterization at [place], but the patient does not want to go there. Denies any chest pain, shortness of breath, any palpitation. History of possible recent syncope. PAST HISTORY: Significant for hypothyroidism, abnormal stress test as mentioned by Dr. Rosales in 03/2018 and since then, the patient was rescheduled for cardiac catheterization, but did not go for cardiac catheterization. Also, echo at that time showed ejection fraction of 45% to 50%. RECENT CARDIAC WORKUP: As follows: The patient had a stress test with [facility] by Dr. Catrachita Rosales that shows abnormal multiple reversible ischemia, ejection fraction 45% to 50%. The patient had a recent echo done at the [facility] dated 06/16/2018 that revealed ejection fraction of 45% to 50%, mild hypokinesis of the inferolateral wall, mild tricuspid regurgitation, RV systolic pressure of 45, mild mitral regurgitation. No aortic regurgitation. No aortic stenosis. CURRENT MEDICATIONS: The patient at home was taking oxycodone, tramadol, metoprolol tartrate 2.5 mg twice a day, levothyroxine, enoxaparin and aspirin. REVIEW OF SYSTEMS: As per HPI. PHYSICAL EXAMINATION: GENERAL: Height of the patient 5 feet, weight of the patient 138 pounds, body mass index 27 kg/m2. VITAL SIGNS: Rest of the vitals, temperature afebrile, heart rate 80, blood pressure 130/80. HEENT: PERRLA. Extraocular muscles intact. NECK: Supple. No carotid bruit or thyromegaly. CHEST: Clear to auscultation. HEART: S1 and S2 regular. ABDOMEN: Soft. EXTREMITIES: Clubbing and cyanosis negative. LABORATORY DATA: Blood workup: WBC 5.3, hemoglobin 9.9, hematocrit 30.9, platelet count 215. Chemistry shows sodium 141, potassium 5.3, chloride 106, carbon dioxide 33, anion gap of 8, BUN 25, creatinine 1.3 dated 06/17/2018, total cholesterol 118, LDL 50, HDL 31, triglycerides 121, TSH 1.88. IMPRESSION: An 87-year-old female with past medical history of hypertension, hypothyroidism, admitted initially after a syncopal episode and fell down. The patient said she did not pass out, but possible syncope. The patient had a prior stress test and echo done by PMD that was abnormal. Cath was suggested, but the patient did keep on deferring, does not want to go to the [place]. Repeat echo was done here, shows mild mitral regurgitation, mild tricuspid regurgitation, right ventricular systolic pressure of 48, left ventricular function 45% to 50%, status post fall, status post undisplaced fracture of right pelvic ring. PLAN: To continue beta-yola, continue aspirin, Plavix, continue rehab. The patient is currently in TCU. Once the patient is ready to be discharged, we will schedule cardiac catheterization next that is 06/26/2018 at 10:30. Discussed with the patient. The patient agreed for cardiac catheterization, does not want to go to [place]. Also discussed with PMD, Dr. Catrachita Rosales and suggested to have a cardiac catheterization done before the patient goes home, discharged. Interim, continue aspirin, continue Plavix, continue beta-yola, continue atorvastatin. Repeat the blood workup in the morning. We will follow with you. Thank you, Dr. Hankins, for providing us the opportunity in taking care of the patient, Lluvia Gutierrez. Monica Arenas MD
[2018-06-19] MEDS: Pantoprazole 40 mg EC Tab PO SCH (05:02)
[2018-06-19 07:33] LABS: BASO # 0.05 K/mm3 (0.0-2.0); BASO % 0.9 % (0.0-3.0); EOS # 0.3 (0.0-0.7); EOS % 5.1 % (1.5-5.0); GRAN # 3.33 (1.4-6.5); GRAN % 62.6 % (50.0-68.0); LYMPH # 1.4 (1.2-3.4); LYMPH % 25.8 % (22.0-35.0); MEAN CELL VOLUME 94.4 fl (80.0-105.0); MEAN CORPUSCULAR HGB CONC 32.8 g/dl (31.0-37.0); MEAN PLATELET VOLUME 9.4 fl (7.0-11.0); MONO # 0.3 (0.1-0.6); MONO % 5.6 % (1.0-6.0); RBC 3.23 10^6/uL (3.5-6.1); RED CELL DISTRIBUTION WIDTH 13.2 % (11.5-14.5); WHITE BLOOD COUNT 5.3 10^3/ul (4.5-11.0)
[2018-06-19 08:50] LABS: IRON 47 ug/dL (45-180)
[2018-06-19 09:00] LABS: % IRON SATURATION 17 % (20-55); TOTAL IRON BINDING CAPACITY 272 ug/dL (265-497)
[2018-06-19] MEDS: Lidocaine 5% Patch TD SCH (09:13)
[2018-06-19] MEDS: Enoxaparin 30 mg Syringe SC SCH ×2 (09:13→22:05)
[2018-06-19 17:21] LABS: FOLATE 16.2 ng/mL
--- NOTE | 2018-06-19 18:32 | CON ---
DATE: 06/19/2018 NEUROLOGY CONSULTATION CHIEF COMPLAINT: Recent fall and syncope. HISTORY OF PRESENT ILLNESS: An 87-year-old woman who was initially admitted to medical floor on 06/15/2018, for possible fall and possible pelvic fracture for OR and is currently in TCU for rehab. I saw her for her syncope which is likely vasovagal from transient cerebral hypoperfusion to the brain since she had low systolic and diastolic blood pressure at that time. She was also deconditioned and has diabetic peripheral neuropathy which is consistent with her poor balance and therefore sustained a fall and had a right pelvic ring fracture. Orthopedics on board. PAST MEDICAL HISTORY: As above. ALLERGIES: LATEX AND PENICILLIN. REVIEW OF SYSTEMS: Fourteen-point review of systems is negative except as per the HPI. SOCIAL HISTORY: No illicit drug use, smoking, or EtOH abuse. MEDICATIONS: Reviewed by nurse per reconciliation sheet. LABORATORY DATA: Iron levels are 47, TIBC is 272, percent saturation 17, ferritin is 172. B12 level is currently pending. PHYSICAL EXAMINATION VITAL SIGNS: Temperature 98.3, pulse rate of 80, blood pressure 105/65, respiratory rate of 18, oxygen saturation 97% by room air. GENERAL: The patient is sitting up in bed, in no acute distress. HEENT: Atraumatic, normocephalic. PERRLA. Extraocular muscles intact. NECK: Supple. No JVD. No adenopathy noted. LUNGS: Clear to auscultation. No adventitious sounds. HEART: S1 and S2. Normal rate and rhythm. No murmurs, rubs, or gallops. ABDOMEN: Soft, nontender, and nondistended. Bowel sounds are present. EXTREMITIES: No clubbing. No cyanosis. Peripheral pulses 2+ felt bilaterally. NEUROLOGIC: The patient is alert and oriented to person, place, month, and year. Speech is fluent without any errors. Cranial nerves II through XII intact. Motor exam: Moves all extremities equally. Toes are downgoing bilaterally. Sensory exam: Decreased light touch and pinprick up to the calves bilaterally. Decreased vibration of the toes. DTRs are 1+ throughout both knees and absent at the ankles. Coordination: [id number] intact. No dysmetria noted. Gait is deferred for now. IMPRESSION AND RECOMMENDATIONS: Her syncope is likely secondary from underlying vasovagal component from transient cerebral hypoperfusion to the brain given that she had initially low systolic and diastolic blood pressures which could have been the cause as well as deconditioned and has diabetic peripheral neuropathy which sustained in fall from poor balance and right pelvic ring fracture status post orthopedic intervention, currently in TCU, undergoing rehabilitation. At this time, we will recommend; 1. Follow up Cardiology in regards to syncope. Continue with aspirin, Plavix, beta-yola, and atorvastatin for stroke prevention. 2. Physical therapy for rehabilitation in terms of muscle strengthening and balance coordination exercises. 3. Monitor blood sugars and correct accordingly. 4. Continue with PT and follow up as an outpatient. Yossi Tran MD
--- NOTE | 2018-06-19 22:50 | PN ---
DATE: 06/19/2018 REASON FOR CONSULTATION AND FOLLOWUP: Continuity of care in transitional care unit, possible CAD. SUBJECTIVE: Patient denies any chest pain, shortness of breath, or any palpitation. OBJECTIVE: GENERAL: Not in apparent distress. VITAL SIGNS: Temperature afebrile, heart rate 82, blood pressure 105/65 HEENT: PERRLA. Extraocular muscles intact. NECK: Supple. No carotid bruit or thyromegaly. CHEST: Clear to auscultation. HEART: S1 and S2 regular. ABDOMEN: Soft. EXTREMITIES: Clubbing and cyanosis negative. LABORATORY DATA: Blood workup is as follows. WBC 5.3, hemoglobin 10, hematocrit 30.3, platelet count 210. Chemistry is not available. IMPRESSION: This is an 87-year-old female admitted after a fall with pelvic fracture, undisplaced and is being treated medically. From the Cardiology point of view, patient had a stress test that is abnormal, dated 03/[address] Catrachita Rosales and scheduled for stress test, patient refused. Patient wanted to get it done. PLAN: Continue optimal medical treatment for now. Continue beta-yola. Continue atorvastatin. Continue aspirin and Plavix. Once the rehab is completed, possible catheterization by the end of next week, possibly . Discussed with the patient. Patient is willing to go for cardiac catheterization on here. We will follow. Repeat the blood workup in the morning. Interim, continue baby aspirin. Continue atorvastatin. Continue beta-yola 12.5 mg twice a day. Continue DVT prophylaxis. Continue clopidogrel. We will follow with you. Thank you Dr. Hankins for providing us the opportunity in taking care of the patient, Lluvia Gutierrez. Monica Arenas MD
[2018-06-20] MEDS: Pantoprazole 40 mg EC Tab PO SCH (05:29)
[2018-06-20 07:36] LABS: HEMOGLOBIN 10.1 g/dL (12.0-16.0); MEAN CELL VOLUME 94.6 fl (80.0-105.0); MEAN CORPUSCULAR HEMOGLOBIN 30.2 pg (25.0-35.0); RBC 3.34 10^6/uL (3.5-6.1); WHITE BLOOD COUNT 5.5 10^3/ul (4.5-11.0)
[2018-06-20 07:37] LABS: BASO # 0.05 K/mm3 (0.0-2.0); BASO % 0.9 % (0.0-3.0); EOS # 0.3 (0.0-0.7); EOS % 5.1 % (1.5-5.0); GRAN # 3.43 (1.4-6.5); GRAN % 62.2 % (50.0-68.0); LYMPH # 1.4 (1.2-3.4); MEAN PLATELET VOLUME 9.6 fl (7.0-11.0); MONO # 0.3 (0.1-0.6); MONO % 5.8 % (1.0-6.0)
[2018-06-20 07:49] LABS: CALCIUM 9.8 mg/dL (8.4-10.5)
[2018-06-20] MEDS: Oxycodone/Acetaminophen 5/325 mg Tab PO PRN (09:41)
[2018-06-20] MEDS: Lidocaine 5% Patch TD SCH (09:42)
--- NOTE | 2018-06-20 16:56 | PN ---
DATE: 06/20/2018 LOCATION: The patient is in Transitional Care Unit 304, bed 1. REASON FOR CONSULTATION AND FOLLOWUP: Coronary artery disease, deconditioning, status post fall and pelvic fracture. SUBJECTIVE: The patient denies any chest pain, shortness of breath or palpitation. The patient is sitting in chair comfortably without any cardiac symptoms. PHYSICAL EXAMINATION VITAL SIGNS: Blood pressure 98/56, respiration 18, pulse 87, temperature 98.3. HEENT: Head is normocephalic. Eyes: Pupils normal. Conjunctivae slightly pale. NECK: JVP is low. Carotid equal. THORAX: AP diameter normal. LUNGS: Clear. CARDIOVASCULAR: S1 and S2. ABDOMEN: Soft. No tenderness. No organomegaly. EXTREMITIES: No clubbing, no cyanosis, no edema. LABORATORY DATA: WBC 5.5, hemoglobin 10.1, hematocrit 31.6, and platelets 245. Sodium 138, potassium 4.8, BUN 23, creatinine 1.3, glucose 91, calcium 9.8, phosphorous 4.1, magnesium 1.9. DIAGNOSES: Status post fall with pelvic fracture, displaced, being treated medically. The patient has a stress test as outpatient which was abnormal showing ischemia, it was done on 04/04/[address] itzel romero and the patient was told to go for cardiac catheterization. Initially, the patient did not want to do that, but now the patient has agreed and she wants to do it here in [facility]. So, the patient coronary artery disease. PLAN: If the patient does not have angina symptom need cardiac catheterization which will be done after rehab is completed. Discussed with the patient. The patient is on aspirin 81 mg daily, Lipitor 20 mg daily, metoprolol tartrate 12.5 mg p.o. daily, Lovenox 30 mg subcu b.i.d., Neurontin 300 mg t.i.d., Plavix 75 mg daily, Protonix 40 daily. We will continue present therapy. We will continue physical therapy for deconditioning and we will follow. Monica Meyers MD [facility] # [id number]
[2018-06-20] MEDS: Enoxaparin 30 mg Syringe SC SCH ×2 (17:25→17:28)
[2018-06-21] MEDS: Pantoprazole 40 mg EC Tab PO SCH (05:06)
[2018-06-21] MEDS: Enoxaparin 30 mg Syringe SC SCH ×2 (05:06→17:24)
[2018-06-21] MEDS: Oxycodone/Acetaminophen 5/325 mg Tab PO PRN (06:14)
[2018-06-21] MEDS: Lidocaine 5% Patch TD SCH (09:25)
--- NOTE | 2018-06-21 13:56 | PN ---
DATE: 06/21/2018 REASON FOR CONSULTATION: Continuity of care in transitional care unit, possible CAD. SUBJECTIVE: Patient denies any chest pain, shortness of breath, or any palpitation. OBJECTIVE: GENERAL: Not in apparent distress. VITAL SIGNS: Temperature afebrile, heart rate 90, blood pressure 102/58. HEENT: PERRLA. Extraocular muscles intact. NECK: Supple. No carotid bruits or thyromegaly. CHEST: Clear to auscultation. HEART: S1 and S2 regular. ABDOMEN: Soft. EXTREMITIES: Clubbing and cyanosis negative. LABORATORY DATA: Blood workup as follows. WBC 5.5, hemoglobin , hematocrit 31.6, platelet count 245. Chemistry shows sodium 130, potassium 4.8, chloride 102, carbon dioxide 30, anion gap of 11, BUN 20, creatinine 1.3. IMPRESSION: An 87-year-old female with past medical history significant for abnormal stress test, possible coronary artery disease, status post fall, fracture, hip undisplaced, being treated medically. RECOMMENDATIONS: Continue aspirin. Continue Plavix. Continue rehab. Continue lidocaine patch for pain. Continue atorvastatin. Continue 12.5 of beta-yola twice. Continue Lovenox as ordered by Dr. Yeh. Cardiac catheterization and possible stent on . Discussed with the patient. We will follow with you. Thank you, Dr. Yeh, for providing us the opportunity in taking care of the patient, Lluvia Gutierrez. Monica Arenas MD
[2018-06-22] MEDS: Enoxaparin 30 mg Syringe SC SCH ×2 (06:24→17:34)
[2018-06-22] MEDS: Pantoprazole 40 mg EC Tab PO SCH (06:24)
[2018-06-22] MEDS: Oxycodone/Acetaminophen 5/325 mg Tab PO PRN (06:58)
[2018-06-22] MEDS: Lidocaine 5% Patch TD SCH (09:42)
--- NOTE | 2018-06-22 14:13 | PN ---
DATE: 06/22/2018 REASON FOR THE CONSULTATION: For continuity of care in Transitional Care Unit, possible CAD. SUBJECTIVE: The patient denies any chest pain, shortness of breath or any palpitation. OBJECTIVE: GENERAL: Not in any apparent distress. VITAL SIGNS: Temperature afebrile, heart rate 72, blood pressure 132/79. HEENT: PERRLA. Extraocular muscles intact. NECK: Supple. No carotid bruit. No thyromegaly. CHEST: Clear to auscultation. HEART: S1 and S2 regular. ABDOMEN: Soft. EXTREMITIES: Clubbing and cyanosis negative. LABORATORY DATA: Blood workup as follows: WBC 5.5, hemoglobin , hematocrit 31.6, platelet count 245. Chemistry shows sodium 130, potassium 4.8, chloride 102, carbon dioxide 30, anion gap of 11, BUN 23, creatinine 1.1. IMPRESSION: An 87-year-old female with past medical history of hypertension, history of recent cardiac catheterization, abnormal, is scheduled for stress test, but the patient did go to [place], who apparently fell down, sustained undisplaced pelvic fracture, being treated medically. Now, the patient is in the Transitional Care Unit. PLAN: Continue at the rehab and we will do the cardiac catheterization when the patient is ready to be discharged from the rehab. Interim, continue aspirin. Continue atorvastatin. Continue low-dose beta yola. Continue deep venous thrombosis prophylaxis. Continue Plavix. The patient is currently asymptomatic. We will follow with you. The patient is scheduled for cardiac catheterization on . Thank you, Dr. Yeh for providing us the opportunity in taking care of the patient, Lluvia Gutierrez. Monica Arenas MD
[2018-06-23] MEDS: Enoxaparin 30 mg Syringe SC SCH (06:02)
[2018-06-23] MEDS: Pantoprazole 40 mg EC Tab PO SCH (06:03)
--- NOTE | 2018-06-23 07:46 | CP.PCM.PN ---
Subjective - Date & Time of Evaluation Date of Evaluation: 06/23/18 Time of Evaluation: 07:00 - Subjective Subjective: SUBJECTIVE: She is comfortable in bed, in no acute distress. Denies any hip pain. Able to ambulate to the restroom. No nausea, no vomiting. Evaluated by Dr. Kirby. Fractured pelvis on CT scan. participating in Physical therapy. REVIEW OF SYSTEMS: As per HPI. Rest of 12-point review of systems reviewed negative. PHYSICAL EXAMINATION: GENERAL: Comfortable in bed, in no acute distress. VITAL SIGNS: reviewed. HEENT: Pallor positive. NECK: No lymphadenopathy. CHEST: Air entry present and equal bilateral. No added sound. CARDIOVASCULAR: S1, S2 normal. No murmur. No gallop. ABDOMEN: Soft, nontender. No hepatosplenomegaly. EXTREMITIES: No edema. LABORATORY DATA: reviewed. MEDICATIONS: Reviewed. ASSESSMENT: 1. Status post fall. 2. Right-sided pelvic fracture. 3. Deconditioning, difficulty in walking. 4. Anemia. 5. Mild renal insufficiency. 6. Hypothyroidism. 7. Hypertension. PLAN: We will continue current medication. Pain control with current medications. . We will continue Plavix, aspirin. Currently on Lovenox for DVT prophylaxis, we will continue that. Gabapentin 300 mg p.o. t.i.d., Synthroid 75 mcg daily, Lidoderm patch local application, metoprolol to continue, Percocet p.r.n. for pain, Protonix 40 mg daily. Mild renal insufficiency, we will continue to monitor renal functions. Anemia related to iron deficiency, may be chronic kidney disease. Hb/Hct stable now. Haley Yeh MD Objective - Vital Signs/Intake and Output Vital Signs (last 24 hours): Temp Pulse Resp BP Pulse Ox 97 F L 18 L 16 110/73 98 06/22/18 09:49 06/22/18 09:49 06/21/18 17:03 06/22/18 17:34 06/21/18 17:03 - Medications Medications: Current Medications Aspirin (Aspirin Chewable) 81 mg PO 0800 [facility] Last Admin: 06/22/18 08:00 Dose: 81 mg Atorvastatin Calcium (Lipitor) 20 mg PO DIN [facility] Last Admin: 06/22/18 17:34 Dose: 20 mg Clopidogrel Bisulfate (Plavix) 75 mg PO DAILY [facility] Last Admin: 06/22/18 09:42 Dose: 75 mg Enoxaparin Sodium (Lovenox) 30 mg SC 0600,1800 [facility]; Protocol Last Admin: 06/23/18 06:02 Dose: 30 mg Gabapentin (Neurontin) 300 mg PO TID [facility]; Protocol Last Admin: 06/22/18 17:35 Dose: 300 mg Lidocaine (Lidoderm) 1 ea TD DAILY [facility] Last Admin: 06/22/18 09:42 Dose: 1 ea Metoprolol Tartrate (Lopressor) 12.5 mg PO 0800,1800 [facility] Last Admin: 06/22/18 17:34 Dose: 12.5 mg Oxycodone/Acetaminophen (Percocet 5/325 Mg Tab) 1 tab PO Q6H PRN PRN Reason: MODERATE PAIN 9(4-7) Stop: 06/25/18 15:49 Pantoprazole Sodium (Protonix Ec Tab) 40 mg PO 0600 [facility] Last Admin: 06/23/18 06:03 Dose: 40 mg - Labs Labs: 06/20/18 07:15 06/20/18 07:15
[2018-06-23] MEDS: Oxycodone/Acetaminophen 5/325 mg Tab PO PRN (08:00)
[2018-06-23] MEDS: Lidocaine 5% Patch TD SCH (10:31)
[2018-06-23 17:09] VITALS: RESP 18
--- NOTE | 2018-06-23 17:34 | PN ---
DATE: 06/23/2018 REASON FOR CONSULTATION: Continued care in Transitional Care Unit, possible CAD, abnormal stress test. SUBJECTIVE: The patient denies any chest pain, shortness of breath or any palpitation. OBJECTIVE: GENERAL: Not in any apparent distress. VITAL SIGNS: Temperature afebrile, heart rate 78, blood pressure 111/73. HEENT: PERRLA. Extraocular muscles intact. NECK: Supple. No carotid bruits or thyromegaly. CHEST: Clear to auscultation. HEART: S1 and S2 regular. ABDOMEN: Soft. EXTREMITIES: Clubbing and cyanosis negative. LABORATORY DATA: Blood workup as follows: WBC 5.5, hemoglobin 10.1, hematocrit 31.6, platelet count 245. Chemistry shows sodium 138, potassium 4.8, chloride 102, carbon dioxide 30, anion gap of 11, BUN 23, creatinine 1.3. IMPRESSION: An 87-year-old female with possible coronary artery disease, decreased left ventricular function, abnormal stress test outside by wastewater treatment plant instructor, by [facility] wastewater treatment plant instructor, Dr. Domínguez. Admitted after a fall and undisplaced fracture of hip. Decided we treat it medically. Now, the patient is in the Transitional Care Unit for the continuity of the care. Once the patient complete rehab, we will schedule cardiac catheterization on coming . In the interim, continue aspirin, Plavix. Continue low-dose beta-yola. Continue atorvastatin. Continue deep venous thrombosis prophylaxis. We will cut down to 30 mg daily once a day at 6:00 a.m. Cardiac catheterization on . Thank you, Dr. Yeh, for providing us the opportunity in taking care of the patient, Lluvia Gutierrez. Monica Arenas MD cc: Haley Yeh MD.
[2018-06-24] MEDS: Pantoprazole 40 mg EC Tab PO SCH (05:41)
[2018-06-24] MEDS: Enoxaparin 30 mg Syringe SC SCH ×2 (05:41→05:47)
[2018-06-24] MEDS: Oxycodone/Acetaminophen 5/325 mg Tab PO PRN (05:45)
[2018-06-24] MEDS: Lidocaine 5% Patch TD SCH (10:34)
[2018-06-24 13:08] LABS: BASO # 0.04 K/mm3 (0.0-2.0); BASO % 0.7 % (0.0-3.0); EOS # 0.3 (0.0-0.7); EOS % 4.4 % (1.5-5.0); GRAN # 3.98 (1.4-6.5); GRAN % 67.4 % (50.0-68.0); HEMOGLOBIN 10.2 g/dL (12.0-16.0); LYMPH # 1.3 (1.2-3.4); LYMPH % 22.3 % (22.0-35.0); MEAN CELL VOLUME 95.1 fl (80.0-105.0); MEAN CORPUSCULAR HEMOGLOBIN 31.2 pg (25.0-35.0); MEAN CORPUSCULAR HGB CONC 32.8 g/dl (31.0-37.0); MEAN PLATELET VOLUME 9.7 fl (7.0-11.0); MONO # 0.3 (0.1-0.6); MONO % 5.2 % (1.0-6.0); RBC 3.27 10^6/uL (3.5-6.1); RED CELL DISTRIBUTION WIDTH 13.2 % (11.5-14.5); WHITE BLOOD COUNT 5.9 10^3/ul (4.5-11.0)
[2018-06-24 13:18] LABS: CALCIUM 9.7 mg/dL (8.4-10.5); URIC ACID 8.5 mg/dL (2.5-6.2)
--- NOTE | 2018-06-24 14:13 | PN ---
DATE: 06/24/2018 REASON FOR THE CONSULTATION AND FOLLOWUP: Continued care in Transitional Care Unit, possible CAD, abnormal stress test. SUBJECTIVE: The patient denies any chest pain, shortness of breath, complaining of right toe pain. PHYSICAL EXAMINATION: VITAL SIGNS: Temperature afebrile, heart rate 76, blood pressure 125/73. HEENT: PERRLA. Extraocular muscles intact. NECK: Supple. No carotid bruits or thyromegaly. CHEST: Clear to auscultation. HEART: S1, S2 regular. ABDOMEN: Soft. EXTREMITIES: Clubbing and cyanosis negative. LABORATORY DATA: Blood workup as follows: WBC 5.5, hemoglobin 10.1, hematocrit 31.6, platelet count 245. Chemistry shows sodium 138, potassium 4.8, chloride 102, carbon dioxide 30, anion gap of 11, BUN 23, creatinine 1.3. IMPRESSION: An 87-year-old female with past medical history significant for hypertension, coronary artery disease, recent stress test abnormal by Cardiology at [place] Dr. Suero who admitted after a fall, undisplaced fracture, now getting rehab, complaining of right big toe pain, possibly acute gout. RECOMMENDATIONS: We will get uric acid level, SMA-7 today and start empirically colchicine 1 dose now and then after 6 hours. Continue aspirin, continue Plavix, continue beta-yola, continue atorvastatin. DVT prophylaxis, possible cardiac catheterization on . Thank you, Dr. Yeh, for providing us the opportunity in taking care of the patient, Lluvia Gutierrez. Monica Arenas MD cc: Haley Yeh MD
[2018-06-25] MEDS: Enoxaparin 30 mg Syringe SC SCH ×2 (05:36→05:38)
[2018-06-25] MEDS: Pantoprazole 40 mg EC Tab PO SCH (05:36)
[2018-06-25] MEDS: Lidocaine 5% Patch TD SCH (09:09)
[2018-06-25 17:07] VITALS: TEMP 98; O2SAT 98
--- NOTE | 2018-06-26 00:18 | PN ---
DATE: 06/25/2018 SUBJECTIVE: She is comfortable in bed, no acute distress. She is participating in physical therapy. She is complaining of still unsteady gait. No chest pain. No shortness of breath. No pelvic pain. REVIEW OF SYSTEMS: As per HPI. Rest of 12-point review of systems reviewed and negative. PHYSICAL EXAMINATION: GENERAL: Comfortable in bed, no acute distress. VITAL SIGNS: Reviewed and stable. Temperature 98.7, heart rate 80 per minute, blood pressure 110/70, respiratory rate 18 per minute. NECK: No lymphadenopathy. CHEST: Air entry present and equal bilateral. No added sounds. CARDIOVASCULAR: S1 and S2 normal. No murmur. No gallop. ABDOMEN: Soft and nontender. No hepatosplenomegaly. EXTREMITIES: No edema. LABORATORY DATA: Reviewed. MEDICATIONS: Reviewed. ASSESSMENT: 1. Status post fall. 2. Right-sided pelvic fracture. 3. Deconditioning. 4. Anemia. 5. Mild renal insufficiency. 6. Hypothyroidism. PLAN: Continue current medications. She is on DVT prophylaxis, we will continue that. We will arrange the home physical therapy. She will be discharged tomorrow. She will undergo cardiac cath prior to going home by Dr. Arenas. Discussed with the patient. Called the two daughters listed on the medical record, no answer. Discussed with the Family Law Paralegal. Discussed with the telehealth case manager on the floor. Haley Yeh MD
[2018-06-26] MEDS: Enoxaparin 30 mg Syringe SC SCH (05:18)
[2018-06-26] MEDS: Pantoprazole 40 mg EC Tab PO SCH (05:18)
[2018-06-26 07:56] LABS: BASO # 0.07 K/mm3 (0.0-2.0); BASO % 1.3 % (0.0-3.0); EOS # 0.3 (0.0-0.7); EOS % 5.9 % (1.5-5.0); GRAN # 3.16 (1.4-6.5); GRAN % 58.8 % (50.0-68.0); HEMOGLOBIN 10.7 g/dL (12.0-16.0); LYMPH # 1.5 (1.2-3.4); LYMPH % 27.9 % (22.0-35.0); MEAN CELL VOLUME 95.1 fl (80.0-105.0); MEAN CORPUSCULAR HGB CONC 32.6 g/dl (31.0-37.0); MEAN PLATELET VOLUME 9.7 fl (7.0-11.0); MONO # 0.3 (0.1-0.6); MONO % 6.1 % (1.0-6.0); RBC 3.45 10^6/uL (3.5-6.1); RED CELL DISTRIBUTION WIDTH 13.2 % (11.5-14.5); WHITE BLOOD COUNT 5.4 10^3/ul (4.5-11.0)
[2018-06-26 08:04] VITALS: BP 112/73
[2018-06-26 08:50] VITALS: PULSE 90
--- NOTE | 2018-06-26 08:54 | CON ---
DATE: 06/25/2018 REASON FOR THE CONSULTATION AND FOLLOWUP: Continuity of care in the Transitional Care Unit, possible CAD, abnormal stress test. SUBJECTIVE: The patient denies any chest pain, shortness of breath or any palpitation, was complaining of right toe pain. OBJECTIVE GENERAL: Not in apparent distress. Feels a lot better after giving colchicine. VITAL SIGNS: Temperature afebrile, heart rate 78, blood pressure 110/65. HEENT: PERRLA. Extraocular muscles intact. NECK: Supple. No carotid bruits or thyromegaly. CHEST: Clear to auscultation. HEART: S1 and S2 regular. ABDOMEN: Soft. EXTREMITIES: Clubbing and cyanosis negative. Right toe appears much better than yesterday. LABORATORY DATA: WBC as of yesterday 5.9, hemoglobin , hematocrit 31.1, platelet count 293. Chemistry shows sodium 137, potassium 5.1, chloride 102, carbon dioxide 26, anion gap of 14, BUN 24, creatinine 1.4. Uric acid level came in 8.5. IMPRESSION: Acute gouty arthritis, hyperkalemia, coronary artery disease, abnormal stress test, status post fall, hip fracture. RECOMMENDATIONS: We will continue colchicine. After that, symptom significantly improved. Continue beta-yola, continue Plavix, continue aspirin, continue atorvastatin. Discharged from TCU tomorrow morning. Cardiac catheterization tomorrow morning. We will repeat the blood workup in the morning. Thank you, Dr. Yeh, for providing us the opportunity in taking care of the patient, Lluvia Gutierrez. The risks, benefits and alternatives were discussed with the patient. The patient is agreeable to proceed for cardiac catheterization. We will keep n.p.o. after 12 midnight for cardiac catheterization tomorrow. The patient was treated yesterday empirically with acute gout and feels a lot better and the level of the uric acid came back to 8.6 consistent with gout. Monica Arenas MD cc: Haley Yeh MD
== END 2018-06-26 10:24 | disposition home health service (06) | DRG 561 ==
LOC: TRCU 18:24
PROVIDERS: ADMIT Internal Medicine Medical Oncology; ATTEND Internal Medicine Medical Oncology
PROC: F07Z9FZ Gait Training/Functional Ambulation Treatment using Assistive, Adaptive, Supportive or Protective Equipment (ICD-10-PCS; principal; 2018-06-18)
PROC: F08Z4FZ Home Management Treatment using Assistive, Adaptive, Supportive or Protective Equipment (ICD-10-PCS; 2018-06-18)
DX: S32.591D Other specified fracture of right pubis, subsequent encounter for fracture with routine healing (principal); S32.810D Multiple fractures of pelvis with stable disruption of pelvic ring, subsequent encounter for fracture with routine healing; W19.XXXD Unspecified fall, subsequent encounter; R26.2 Difficulty in walking, not elsewhere classified; E11.42 Type 2 diabetes mellitus with diabetic polyneuropathy; I25.10 Atherosclerotic heart disease of native coronary artery without angina pectoris; E03.9 Hypothyroidism, unspecified; I10 Essential (primary) hypertension; D64.9 Anemia, unspecified; I08.1 Rheumatic disorders of both mitral and tricuspid valves; E87.5 Hyperkalemia

== ENCOUNTER 2018-06-26 09:48 | Day surgery (SDC) | payer MEDICARE ==
[2018-06-26 10:21] VITALS: RESP 18; TEMP 98.1; O2SAT 99
[2018-06-26 10:26] LABS: BASO # 0.09 K/mm3 (0.0-2.0); BASO % 1.5 % (0.0-3.0); EOS # 0.3 (0.0-0.7); EOS % 4.6 % (1.5-5.0); GRAN # 3.96 (1.4-6.5); GRAN % 65.2 % (50.0-68.0); HEMOGLOBIN 10.6 g/dL (12.0-16.0); LYMPH # 1.4 (1.2-3.4); LYMPH % 23.1 % (22.0-35.0); MEAN CELL VOLUME 94.9 fl (80.0-105.0); MEAN CORPUSCULAR HEMOGLOBIN 30.3 pg (25.0-35.0); MEAN CORPUSCULAR HGB CONC 31.9 g/dl (31.0-37.0); MONO # 0.3 (0.1-0.6); MONO % 5.6 % (1.0-6.0); RBC 3.5 10^6/uL (3.5-6.1); RED CELL DISTRIBUTION WIDTH 13.2 % (11.5-14.5); WHITE BLOOD COUNT 6.1 10^3/ul (4.5-11.0)
[2018-06-26 10:31] LABS: CALCIUM 9.9 mg/dL (8.4-10.5); INR 0.99; PARTIAL THROMBOPLASTIN TIME 30.7 Seconds (25.1-36.5); PROTHROMBIN TIME 11.4 SECONDS (9.4-12.5)
[2018-06-26] MEDS ORDERED: Lidocaine 2% PF (10 ml) Amp ONE (10:38)
[2018-06-26] MEDS ORDERED: Nitroglycerin 50mg in D5W 50 MG/250 ML BOTTLE IV ONE (10:40)
[2018-06-26] MEDS ORDERED: Iodixanol 320 MG/ML 200 ML BOTTLE IV ONE (10:40)
[2018-06-26] MEDS ORDERED: Iohexol 350mgl/ml 50 ML ONE (10:40)
[2018-06-26] MEDS ORDERED: Midazolam 2 MG/2 ML VIAL ONE (10:48)
[2018-06-26] MEDS ORDERED: Sodium Chloride 0.9% 1,000 ML IV SCH (12:00)
--- NOTE | 2018-06-26 14:25 | HP ---
REASON FOR ADMISSION: Left heart cath, possible angioplasty. BRIEF CLINICAL HISTORY: This is an 87-year-old female with past medical history significant for status post fall, undisplaced fracture who has abnormal stress test by her greeting card writer Dr. Catrachita Rosales, # [phone], and suggested cardiac catheterization, multiple ischemia, ejection fraction 45%-50%. The patient was scheduled cardiac catheterization at [place], the patient did not go, in between the patient fell and sustained hip fracture, admitted to [facility], undisplaced, decided to be treated medically. Now, the patient has completed rehab course and scheduled for cardiac catheterization. PAST HISTORY: Significant for hypothyroidism, abnormal stress test, hypertension. SOCIAL HISTORY: Denies any smoking. Denies any history of alcohol abuse. RECENT CARDIAC WORKUP: As follows: The patient had a stress test at [facility] by Dr. Catrachita Rosales shows abnormal multiple reversible ischemia, ejection fraction 45% to 50%. The patient's most recent echo at the [facility] on 06/16/2018 that revealed ejection fraction of 45% to 50%, mild hypokinesis of the inferolateral wall, mild tricuspid regurgitation, RV systolic pressure of 45, mild mitral regurgitation. No aortic regurgitation. No aortic stenosis noted. CURRENT MEDICATIONS: The patient is taking oxycodone, aspirin, Plavix, enoxaparin, lidocaine patch, colchicine. REVIEW OF SYSTEMS: As per HPI. ALLERGIES: ALLERGY TO LATEX, ALLERGY TO PENICILLIN. PHYSICAL EXAMINATION: VITAL SIGNS: Height of the patient 5 feet, weight of the patient 138 pounds, body mass index 27 kg/sq m. Temperature afebrile, heart rate 78, blood pressure 110/65. HEENT: PERRLA. Extraocular muscles intact. NECK: Supple. No carotid bruit or thyromegaly. CHEST: Clear to auscultation. HEART: S1 and S2 regular. ABDOMEN: Soft. EXTREMITIES: Clubbing and cyanosis, negative. LABORATORY DATA: Recent workup: WBC of 5.9, hemoglobin 10.2, hematocrit 31.1, platelet count 293. Chemistry shows sodium 137, potassium , chloride 102, carbon dioxide 26, anion gap of 14, BUN 29, creatinine 1.4. IMPRESSION: An 87-year-old female with past medical history significant for hypothyroidism, hypertension, admitted after a fall, sustained fracture of the hip, undisplaced, decided to be treated medically., history of stress test by Dr. Catrachita Rosales, multiple reversible ischemia is scheduled for a stress test, the patient did not go to the [place]. Now, the patient is scheduled for cardiac catheterization, possible angioplasty, mildly decreased left ventricular function, mild mitral regurgitation, mild tricuspid regurgitation, history of acute gout. RECOMMENDATIONS: Risks, benefits and alternatives discussed with the patient. Patient agrees. We will proceed for cardiac catheterization. Further recommendations after cardiac catheterization. We will follow with you. Thank you, Dr. Yeh, for providing us the opportunity in taking care of patient, Lluvia Gutierrez. Monica Arenas MD
--- NOTE | 2018-06-26 14:32 | CPOSTOP ---
DATE: 06/26/2018 CARDIOVASCULAR LAB POST PROCEDURE NOTE DICTATING PHYSICIAN: Monica Arenas MD. TRUCK CAR AND BUS CLEANER: Lavon Boles RN. TYPE OF ANESTHESIA: Moderate conscious sedation. Total 2 mg of Versed, 50 of fentanyl given. Started 1 mg of Versed, 50 of fentanyl. PRE-PROCEDURE DIAGNOSES: Chest pain, abnormal stress test. PROCEDURE PERFORMED: Left heart catheterization. FINDINGS: LAD proximal 30-40% stenosis. Mid LAD 50% stenosis. Mildly decreased LV function. FINAL DIAGNOSIS: Nonobstructive coronary artery disease. POST PROCEDURE CONDITION: Post procedure, the patient's condition is stable. VASCULAR ACCESS SITE: Right femoral artery. CLOSURE DEVICE: Mynx. TOTAL RADIATION DOSE: 3637.16 milligray unit. TOTAL FLUORO TIME: 5.2 minutes. Monica Arenas MD
--- NOTE | 2018-06-26 17:40 | CARD ---
APPROVED REPORT Date of service: 06/26/2018 Procedure(s) performed: Left Heart Catheterization HISTORY The patient is a 87 year-old female with a history of : diabetes mellitus with diet treatment , hypertension , dyslipidemia , Admitted with Fall, had Stress test with PMd with Ischemia in Multiple area. INDICATION The indication(s) include : positive stress test. CASE TECHNIQUE The patient was brought electively to the Cardiac Catheterization Laboratory in a fasting state and was prepped and draped in a sterile manner. The right femoral groin was infiltrated with 2% Lidocaine subcutaneous anesthesia. A 6 Fr x 11 cm Chelsey sheath was inserted into the right femoral artery without difficulty. Coronary angiography was performed using coronary diagnostic catheters. The left coronary system was accessed and visualized with a Diagnostic ,6 Fr JL 4 catheter. The right coronary system was accessed and visualized with a Diagnostic ,6 Fr JR 4 catheter. The left ventricle was accessed and visualized with a 6 Fr Pigtail catheter. Left ventricular/Aortic Valve gradient assessed on pullback. Left ventriculogram was performed in ROGERS projection. Closure device was deployed with a 6 Fr / 7 Fr MynxGrip without any complications. The patient tolerated the procedure well and there were no complications associated with the procedure. Vessel Analysis The patient's coronary anatomy is right dominant. The left main coronary artery is a large size vessel without significant stenosis. The left main bifurcates to the left anterior descending and circumflex. The left anterior descending artery is a medium size vessel with diffuse calcification noted throughout this vessel and without significant stenosis. There is a 30% stenosis in the proximal segment. mid LAD has 50% stenosis The first diagonal branch is a medium size vessel with diffuse calcification noted throughout this vessel and without significant stenosis. The circumflex artery is a large size vessel without significant stenosis. The first obtuse marginal branch is a medium size vessel with intimal irregularities and without significant stenosis. The second obtuse marginal branch is a medium size vessel with intimal irregularities and without significant stenosis. The right coronary artery is a medium size vessel with intimal irregularities and without significant stenosis. The right posterior descending artery is a small size vessel with intimal irregularities and without significant stenosis. Left Ventricle The left ventricle is borderline enlarged in size with mildly decreased contractility. Non-Ischemic cardiomyopathy. The left ventricular ejection fraction is estimated to be 45-50%. The left ventricular end diastolic pressure is 12-14 mmHg. There was no gradient across the aortic valve upon pullback. 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 Mildly Decresed LV FX. EF-45-50%, EDp-12-14 mmof Hg. Recommendations Aggressive Medical TherapyCardiac Risk Reduction Program cc;Bety Newby / Katy Wong
[2018-06-26 17:59] VITALS: BP 122/68; PULSE 72
== END 2018-06-26 18:34 | disposition home or self-care (01) ==
LOC: CATH 09:48 → 2RSO 12:01 → CATH 18:34
PROVIDERS: ATTEND Internal Medicine Cardiovascular Disease
DX: I25.10 Atherosclerotic heart disease of native coronary artery without angina pectoris (principal); I42.9 Cardiomyopathy, unspecified; E11.9 Type 2 diabetes mellitus without complications; E03.9 Hypothyroidism, unspecified; E78.5 Hyperlipidemia, unspecified; I10 Essential (primary) hypertension; M10.9 Gout, unspecified; Z88.0 Allergy status to penicillin